=== PATIENT | female | born 1950 | race Caucasian/White ===

== ENCOUNTER 2018-10-27 10:19 | Inpatient (IN) | payer OTHER ==
[~2018-10-27] VITALS: Ht 154.9 cm; Wt 43.1 kg
[2018-10-27 10:23] VITALS: Ht 154.9 cm; Wt 43.1 kg
--- NOTE | 2018-10-27 10:45 | NUR ---
PT PRESENTS TO ED WITH C/O OF LEFT SIDED FACIAL SWELLING AND POSSIBLE SYNCOPAL EPISODES. PT REPORTS WAKING UP THIS MORNING AND NOTICING THE LEFT SIDE OF HER FACE WAS SWOLLEN. PT STS SHE WAS SWEATING A LOT THEN "PASSED OUT". PT REPORT 3 EPISODES OF "PASSING OUT" THIS MORNING. PT STS SHE HAS HAD DIZZY SPELLS ON AND OFF THIS MORNING WELL. PT WEARS PARTIAL TOP DENTURES, WHEN REMOVED NOTED SOME INFLAMATION AROUND 2 LEFT BACK TEETH. PT DENIES PAIN CURRENTLY. PT DENIES FEVER, SOB, HEAD PAIN, OR N/V/D. PT AAOX4, RESP E/U, ON FULL CM, NO ACUTE DISTRESS NOTED AT THIS TIME.
[2018-10-27 11:38] LABS: CALCIUM 9.5 mg/dL (8.5-10.1); CHLORIDE SERUM 94 mmol/L (98-107); CREATININE SERUM 0.9 mg/dL (0.6-1.0); GFR1 > 60 mL/min; GLUCOSE SERUM 128 mg/dL (74-106); POTASSIUM SERUM 4.1 mmol/L (3.5-5.1); SODIUM SERUM 129 mmol/L (136-145)
[2018-10-27 11:39] LABS: BASOPHIL % 0.3 % (0-2); PLATELET COUNT 308 x10^3mcL (130-400); RED CELL DISTRIBUTION WIDTH 14.3 % (11.5-14.5)
[2018-10-27 11:42] LABS: ALBUMIN 4.1 g/dL (3.4-5.0); ALKALINE PHOSPHATASE 85 U/L (46-116); ALT/SGPT 11 U/L (14-59); AST/SGOT 6 U/L (15-37); BILIRUBIN TOTAL 1.05 mg/dL (0.20-1.00); MAGNESIUM 2.1 mg/dL (1.8-2.4)
[2018-10-27 11:57] LABS: UA SPECIFIC GRAVITY 1.015 (1.005-1.035); microscopic required? YES; urine erythrocyte 1+ (NEGATIVE)
--- NOTE | 2018-10-27 12:08 | NUR ---
PT SITTING UP ON GURNEY IN POSITION OF COMFORT, AAOX4, RESP E/U, NO ACUTE DISTRESS NOTED AT THIS TIME.
--- NOTE | 2018-10-27 12:45 | NUR ---
RECIEVED REPORT FROM BUBBA VALDEZ FROM ER. PT ADMITTING DIAGNOSIS SYNCOPE AND DENTAL INFECTION. PT A/O X4 NO RUSSELL OR DIZZINESS NOTED. PT ON TELE MONITOR #24. LUNGS CTAB ON RA. O2 SAT 99%. IV TO LFA 22 GUAGE INTACT/PATENT RUNNING 50ML/HR NS. PT DENIES ANY PAIN, DISTRESS, OR SOB AT THIS TIME.SAFETY PRECAUTIONS IN PLACE, CALL LIGHT WITHIN REACH, WILL MONITOR.
--- NOTE | 2018-10-27 13:12 | NUR ---
REPORT GIVEN TO BUBBA POWELL ON TELE FLOOR TO ASSUME CARE OF PT.
--- NOTE | 2018-10-27 13:25 | NUR ---
RECEIVED PT VIA [employer] FROM E/D, ACCOMPANIED BY RN AND TRANSPORTER. PT A/A/O X 4, CALM, COOPERATIVE; WEARS GLASSES (NOT W/ PT). AMBULATORY, NO GAIT OR BALANCE IMPAIRMENT NOTED WHEN WALKING FROM [facility] TO BED. ON TELE # 24, HR 71, NSR, DENIES CHEST PAIN OR DIZZINESS AT THIS TIME. JUANIS RADIAL AND PEDAL PULSES PRESENT, CAP REFILL < 3 SECS, +2 EDEMA AND MILD ERYTHEMA TO LEFT SIDE OF FACE INCLUDING THE ORBITAL AREA. ABD SOFT, FLAT, NON-TENDER, NORMOACTIVE BOWEL SOUNDS X 4 QUADS, LAST BM 10/26/18, FORMED; NOTED UPPER AND LOWER PARTIAL DENTURES THAT ARE OVER 5 YEARS OLD, AND INFLAMED GUM AREA AROUND CANINE IN QUAD 2; DISCOMFORT NOTED. VOIDS FREELY, DENIES DYSURIA, HAS URGENCY. IV SITE LFA 22G, CDI. ORIENTED PT TO ROOM, BED CONTROLS, CALL LIGHT SYSTEM. SIDE RAILS UP X 2, BED IN LOW POSITION. WILL ENDORSE TO BUBBA GUTIERREZ.
[2018-10-27 14:35] VITALS: BP 148/74
--- NOTE | 2018-10-27 16:00 | NUR ---
PT RESTING IN BED WATCHING TV. NO DISTRESS NOTED AND NO PAIN OR SOB. SAFETY PRECAUTIONS IN PLACE. CALL LIGHT WITHIN REACH, WILL MONITOR.
[2018-10-27 17:35] VITALS: BP 152/70
--- NOTE | 2018-10-27 19:27 | NUR ---
PT STABLE AT THIS TIME. RESTING COMFORTABLY IN BED. NO C/O PAIN, DISTRESS, OR SOB. TOLERATED ALL CARES WELL. IV INTACT AND PATENT WITH NO REDNESS OR INFLAMMATION. SAFETY PRECAUTIONS IN PLACE, CALL LIGHT WITHIN REACH, ENDORSED CARE TO NIGHT NURSE.
--- NOTE | 2018-10-27 19:41 | NUR ---
RECEIVED PATIENT IN BED WATCHING TELEVISION WITH NO C/O PAIN AND DISCOMFORT. BREATHING EASY AND NONLABOR WITH NO SIGN OF DISTRESS NOTED. FACIAL SWELLING ON RT SIDE NOTED. TELE#24 NSR ON MONITOR DENIES CHESTPAIN. IV TO LFA INTACT AND INFUSING WELL. WILL CONTINUE TO MONITOR. CALL LIGHT WITHIN REACH.
[2018-10-27 21:47] VITALS: BP 148/72
--- NOTE | 2018-10-28 01:45 | NUR ---
APPEARS SLEEPING THIS TIME BREATHING EASY AND NONLABOR. WILL CONTINUE TO MONITOR.
--- NOTE | 2018-10-28 05:27 | NUR ---
SLEPT AT LONG INTERVALS. DENIES PAIN AND DISCOMFORT THE ENTIRE SHIFT. ALL NEEDS ATTENDED.
[2018-10-28 05:43] VITALS: BP 147/65
[2018-10-28 07:15] LABS: BASOPHIL % 0.3 % (0-2); PLATELET COUNT 259 x10^3mcL (130-400); RED CELL DISTRIBUTION WIDTH 14.4 % (11.5-14.5)
--- NOTE | 2018-10-28 07:20 | NUR ---
RECIEVED PT RESTING IN BED. DENIES ANY PAIN, DISTRESS, OR SOB. A/O X4 WITH NO RUSSELL OR DISSINESS. TELE MONITOR #24 CONNECTED TO PT. DENIES ANY CP OR PRESSURE AT THIS TIME. PT ON RA, RR EQUAL AND UNLABORED. NS RUNNING IN LFA 22 GUASE AT 50ML/HR. IV INTACT ANDPATENT WITH NO REDNESS OR INFLAMMATION NOTED. SAFETY PRECAUTIONS IN PLACE, CALL LIGHT WITHIN REACH, WILL MONITOR.
[2018-10-28 07:25] LABS: CALCIUM 8.7 mg/dL (8.5-10.1); CARBON DIOXIDE 25.3 mmol/L (21-32); CHLORIDE SERUM 101 mmol/L (98-107); CREATININE SERUM 0.7 mg/dL (0.6-1.0); GFR1 > 60 mL/min; GLUCOSE SERUM 88 mg/dL (74-106); POTASSIUM SERUM 3.8 mmol/L (3.5-5.1); SODIUM SERUM 134 mmol/L (136-145)
[2018-10-28 09:04] VITALS: BP 129/69
--- NOTE | 2018-10-28 10:30 | NUR ---
PT SITTING UP IN BED WATCHING TV. NO C/O OF ANY PAIN, DISTRESS, OR SOB. SAFETY PRECAUTIONS IN PLACE, CALL LIGHT WITHIN REACH, WILL CONTINUE TO MONITOR.
[2018-10-28 12:59] VITALS: BP 153/80
--- NOTE | 2018-10-28 14:17 | NUR ---
PT STABLE AT THIS TIME WATCHING TV IN BED. DENIES ANY PAIN, DISTRESS, OR SOB AT THSI TIME. SAFETY PRECAUTIONS IN PLACE, CALL LIGHT WITHIN REACH, WILL MONITOR.
[2018-10-28 18:20] VITALS: BP 160/67
--- NOTE | 2018-10-28 19:12 | NUR ---
PT STABLE AT THIS TIME WITH NO C/O PAIN, DISTRESS, OR SOB. IV INTACT AND PATENT WITH NO REDNESS OR INFLAMMATION NOTED. SAFETY PRECAUTIONS IN PLACE, CALL LIGHT WITHIN REACH, ENDORSED CARE TO NIGHT NURSE.
--- NOTE | 2018-10-28 19:20 | NUR ---
RECEIVED PATIENT IN BED AWAKE, ALERT AND ORIENTED. DENIES PAIN AND DISCOMFORT. PATIENT REQUESTED TO TAKE SHOWER AND IN THE BATHROOM THIS TIME. INSTRUCTION ON SAFETY PRECAUTION WHILE BATHING GIVEN, INFORMED MINITOR TECH LEADS OUT FOR THE MEANTIME. WILL CONTINUE TO MONITOR.
[2018-10-28 20:58] VITALS: BP 140/70
--- NOTE | 2018-10-28 23:47 | NUR ---
APPERAS SLEEPING WITH EYES CLOSED. BREATHING EASYA ND NONLABOR. WILL CONTINUE TO MONITOR.
--- NOTE | 2018-10-29 05:03 | NUR ---
SLEPT AT LONG INTERVALS. DENIES PAIN AND DISCOMFORT THE ENTIRE SHIFT. ALL NEEDS ATTENDED.
[2018-10-29 05:45] VITALS: BP 133/62
[2018-10-29 06:23] LABS: BASOPHIL % 0.6 % (0-2); PLATELET COUNT 259 x10^3mcL (130-400); RED CELL DISTRIBUTION WIDTH 14.2 % (11.5-14.5)
[2018-10-29 06:37] LABS: CALCIUM 9.1 mg/dL (8.5-10.1); CHLORIDE SERUM 105 mmol/L (98-107); CREATININE SERUM 0.7 mg/dL (0.6-1.0); GFR1 > 60 mL/min; GLUCOSE SERUM 84 mg/dL (74-106); POTASSIUM SERUM 4.2 mmol/L (3.5-5.1); SODIUM SERUM 140 mmol/L (136-145)
--- NOTE | 2018-10-29 07:29 | NUR ---
RECEIVED PT FROM OVER SHORT AND DAMAGE CLERK RN. [employer]/ASHISH. TELE#24. DENIES CHEST PAIN/PRESSURE. RESPIRATIONS EQUAL AND UNLABORED ON RA. DENIES SOB. SWELLING NOTED TO LT SIDE OF FACE WITH MILD ERYTHEMA. PT DENIES ANY PAIN AT THIS TIME. IV PATENT AND INFUSING TO LFA. NO REDNESS OR SWELLING NOTED. WILL CONTINUE TO MONITOR. CALL LIGHT IN REACH. BED IN LOWEST POSITION.
[2018-10-29 08:13] VITALS: BP 143/61
[2018-10-29] MEDS ORDERED: BACTRIM DS1 TAB PO (08:41)
[2018-10-29 08:52] VITALS: BP 143/61
--- NOTE | 2018-10-29 09:07 | NUR ---
SPOKE WITH PT REGARDING DISCHARGE. PT ASKED TO NOTIFY FRIEND IN [employer]. CALLED AND LEFT A MESSAGE.
--- NOTE | 2018-10-29 12:27 | NUR ---
Initial Nutrition Assessment: ([id number]) PINKY ROSARIO 67F Dx: Syncope, dental infection PMHx: None PSHx: L breast cyst removal Labs: RBC 3.5 L, Hgb 11.9, HCT 34 L Meds: Zofran, Rocephin Diet: Cardiac PO intake since admission: variable, avg ~50% Ht: 61in Wt: 94.8# BMI:17.9 Bed scale: 115# IBW: 105# %IBW: 90.3% UBW: 95# Age: 67 Food Allergies: NKFA Skin: erythema L side face Robby: 22 Edema: L side face GI: Soft, round, nontender, denies N/V, active BS, denies any abdominal pain at this time Last BM: 10/26 note (10/29): Pt visited bedside, resting comfortably, watns to know when she can leave. Pt states does not like the food, no taste. But pt states appetite is good. Pt states in the past she has lost weight r/t worrying about money. Problem with: N/V/D/C: None Problems with: Chewing: No Swallowing: No Current appetite: good Recent wt change: N/A %wt change: N/A Vitamin/Supplement use: None Special diet at home: Regular Physical activity: Walks 1mi 2x/wk Nutrition education given (specify specific nutrition education and handout given): None given at this time. Food-drug interactions? Education given? None given at this time. Estimated Nutritional Needs Based on body weight (43 kg) Energy: 7741-9154 kcal/day (35-40 kcal/kg for wt gain) Protein: 52-60 g/day (1.2-1.4 g/kg for wt gain) Fluid: 9889-5013 mL/day (1 mL/kcal) Nutrition Diagnosis: Underweight r/t decreased oral intake and poor PO AEB 17.9 BMI, and PO avg ~50%. Intervention 1. Continue current plan of care. Monitor/Evaluate Goal: PO intake at least 75% of estimated needs Monitor: PO intake, Labs, GI function F/U in 7 days as low risk 11/05.
--- NOTE | 2018-10-29 12:29 | NUR ---
Recommendations: 1. Continue current plan of care.
--- NOTE | 2018-10-29 15:01 | NUR ---
PT SITTING UP IN BED. NO ACUTE RESP DISTRESS NOTED ON RA. IV PATENT AND INFUSING. NO REDNESS OR SWELLING NOTED. PT DENIES ANY PAIN AT THIS TIME. PT STATES HER FRIEND WILL BE PICKING HER UP LATER. ENCOURAGED PT TO USE CALL LIGHT WHEN READY TO GO HOME. WILL CONTINUE TO MONITOR. CALL LIGHT IN REACH. BED IN LOWEST POSITION.
--- NOTE | 2018-10-29 16:20 | NUR ---
PT SITTING UP AT BEDSIDE. PT GIVEN DISCHARGE INSTRUCTIONS. PT ENCOURAGED TO CONTINUE REGULAR DIET AT HOME AND CONTINUE ACTIVITY TOLERATED. PT ENCOURAGED TO FOLLOW UP WITH PCP AND DENTIST WITHIN 2 TO 3 DAYS OF DISCHARGE. PT VERBALIZED UNDERSTANDING. PT GIVEN PRESCRIPTION FOR BACTRIM. IV TO LW REMOVED CATHETER INTACT. NO REDNESS OR SWELLING NOTED. ALL QUESTIONS AND CONCERNS ADDRESSED. PT WALKED OFF FLOOR WITH SANITARIAN AIDE.
== END 2018-10-29 17:38 | disposition home or self-care (01) | DRG 158 ==
LOC: ED 10:19 → DU 12:24
PROVIDERS: Emergency Medicine; ADMIT Internal Medicine
DX: K04.7 Periapical abscess without sinus (principal); N39.0 Urinary tract infection, site not specified; E87.1 Hypo-osmolality and hyponatremia; Z68.1 Body mass index [BMI] 19.9 or less, adult; R55 Syncope and collapse
CPT/HCPCS: G0378; J0696; J7030; Q0092